=== PATIENT | female | born 1990 | race Two or more races ===

== ENCOUNTER 2020-03-05 16:06 | Emergency (ER) | payer OTHER ==
[~2020-03-05] VITALS: Ht 154.9 cm; Wt 89.8 kg
[~2020-03-05 16:06] MED LIST: GASTRINEX CAPSU1 CAP; SYNTHROID50 MCG; ZANTAC300 MG
[2020-03-05] MEDS ORDERED: PROZAC40 MG (16:19)
[2020-03-05] MEDS ORDERED: ADDERALL 10 MG10 MG (16:20)
[2020-03-05] MEDS ORDERED: ROBITUSSIN COU1 EACH PO (21:42)
[2020-03-05] MEDS ORDERED: VITAMIN C WIT1000 MG PO (21:42)
[2020-03-05] MEDS ORDERED: ACETAMINOPHEN650 M2 PO (21:42)
[2020-03-05] MEDS ORDERED: GUAIFENESIN400 MG PO (21:47)
== END 2020-03-05 21:30 | disposition home or self-care (01) ==
LOC: ER 16:06
DX: J06.9 Acute upper respiratory infection, unspecified (principal); B34.9 Viral infection, unspecified; Z03.818 Encounter for observation for suspected exposure to other biological agents ruled out

== ENCOUNTER 2024-03-31 09:05 | Outpatient (CLI) | payer OTHER ==
[~2024-03-31 09:05] MED LIST changes: +ACETAMINOPHEN650 M2 PO; +ADDERALL 10 MG10 MG; +GUAIFENESIN400 MG PO; +PROZAC40 MG; +ROBITUSSIN COU1 EACH PO; +VITAMIN C WIT1000 MG PO
[2024-03-31 09:36] LABS: ABG PH 7.411 (7.35-7.45); ABG PO2 96.1 mmHg (80-100); ABG pCO2 37.6 mmHg (35-45); BASE EXCESS -0.9 mmol/l; BICARBONATE 23.4 mmol/l (23-25); SaO2 97.5 %; Tco2 24.5 mmol/l
[2024-03-31 09:38] LABS: allen test SATISFACTORY; o2 21 %; puncture site RADIAL RIGHT
== END 2024-03-31 09:06 | disposition home or self-care (01) ==
LOC: RAD 09:05
DX: G47.33 Obstructive sleep apnea (adult) (pediatric) (principal)

== ENCOUNTER → 2024-05-04 | Emergency (ER) | payer OTHER ==
[~2024-05-04] VITALS: Ht 154.9 cm; Wt 114.3 kg
== END | disposition left against medical advice (07) ==
LOC: ER 19:58
DX: Z53.21 Procedure and treatment not carried out due to patient leaving prior to being seen by health care provider (principal)

== ENCOUNTER → 2024-07-29 | Emergency (ER) | payer OTHER ==
[~2024-07-29] VITALS: Ht 154.9 cm; Wt 99.3 kg
[~2024-07-29] MED LIST changes: +0.9 % SODIUM CHLORIDE 1,000 ML IV STA; +BUTALB/ACETAMINOPHEN/CAFFEINE 1 TAB TABLET PO ONE; +BUTALBIT-ACETA1 EACH PO; +CLONAZEPAM0.5 MG PO; +FAMOTIDINE/PF 20 MG in 0.9 % SODIUM CHLORIDE 8 ML IV PUSH STA; +FERROUS SULFAT325 MG PO; +HYOSCYAMINE SULFATE 0.125 MG TAB.SUBL SL ONE; +LEVSIN/SL0.125 MG SL; +MORPHINE SULFATE 4 MG/ML VIAL IV ONE; +ONDANSETRON HCL 2 MG/ML VIAL IV STA; +PROTONIX40 MG PO
[2024-07-29 16:24] LABS: BASO % 0.2 % (0.1-1.2); EOS # 0.08 (0.04-0.54); EOS % 0.9 % (0.7-7.0); HEMATOCRIT 39.7 % (34.1-44.9); LYMPH # 2.43 (1.18-3.74); LYMPH % 25.8 % (19.3-53.1); MEAN CORPUSCULAR HEMOGLOBIN 27.1 pg (25.6-32.2); MONO # 0.62 (0.24-0.82); MONO % 6.6 % (4.7-12.5); NEUT # 6.24 (1.56-6.13); NEUT % 66.3 % (34.0-71.1); PLATELET COUNT 344 K/uL (163-369); RED CELL DISTRIBUTION WIDTH 12.8 % (11.6-14.4)
[2024-07-29 16:56] LABS: CALCIUM 9.3 mg/dL (8.5-10.1); CREATININE SERUM 0.67 mg/dL (0.55-1.02); POTASSIUM 4.48 mEq/L (3.5-5.1)
== END | disposition home or self-care (01) ==
LOC: ER 14:18
PROVIDERS: Emergency Medicine
DX: R10.9 Unspecified abdominal pain (principal); F32.89 Other specified depressive episodes